=== PATIENT | male | born 1965 | race Two or more races ===

== ENCOUNTER 2020-07-09 12:56 | Outpatient (CLI) | payer OTHER | END 2020-07-09 12:57 | disposition EMS.NT | LOC: EMS 12:56 | DX: R56.9 Unspecified convulsions (principal) ==

== ENCOUNTER 2020-07-09 18:30 | Emergency (ER) | payer OTHER ==
[2020-07-09] MEDS ORDERED: LORazepam 2 MG/ML VIAL IVP STA (18:50)
[2020-07-09] MEDS ORDERED: SODIUM CHLORIDE 0.9% 1,000 ML IV STA (18:50)
[2020-07-09 18:59] LABS: BASOPHILS % (AUTO) 0.7 %; EOSINOPHILS % (AUTO) 0.2 %; HCT - HEMATOCRIT 50.4 % (42.0-52.0); HGB - HEMOGLOBIN 16.1 g/dL (14.0-18.0); LYMPHOCYTES % (AUTO) 21.1 %; MEAN CORPUSCULAR HGB CONC 31.9 g/dL (32.0-36.0); MEAN CORPUSCULAR VOLUME 90.8 fL (80.0-94.0); MEAN PLATELET VOLUME 10.2 fL (7.4-11.4); MONOCYTES % (AUTO) 11.6 %; NEUTROPHILS % (AUTO) 65.7 %; PLT - PLATELET COUNT 249 10^3/uL (130-450); RED BLOOD COUNT 5.55 10^6/uL (4.70-6.10); RED CELL DISTRIBUTION WIDTH 12.6 % (12.0-15.0); WHITE BLOOD COUNT 14.7 x10^3/uL (4.8-10.8)
[2020-07-09 19:01] LABS: ABNORMAL LYMPHS % (MANUAL) 0 %
[2020-07-09 19:25] LABS: BAND NEUTROPHILS % (MANUAL) 2 %; LYMPHOCYTES # (MANUAL) 3.4 10^3/uL (1.5-3.5); LYMPHOCYTES % (MANUAL) 23 %; NEUTROPHILS # (MANUAL) 10.3 10^3/uL (1.5-6.6)
[2020-07-09 19:26] LABS: DIFFERENTIAL COMMENT MANUAL DIFFERENTIAL; PLATELET ESTIMATE, MANUAL NORMAL (130-450,000) (NORMAL); PLATELET MORPHOLOGY NORMAL APPEARANCE (NORMAL); RBC MORPHOLOGY (MULTIPLE) NORMAL APPEARANCE (NORMAL); WBC MORPHOLOGY (MULTIPLE) 1+ TOXIC GRANULATION (NORMAL)
[2020-07-09 19:35] LABS: ALBUMIN 5.2 g/dL (3.2-5.5); CALCIUM 9.6 mg/dL (8.5-10.3); CREATININE 1.1 mg/dL (0.6-1.2); POTASSIUM 3.3 mmol/L (3.5-5.0); TOTAL PROTEIN 7.8 g/dL (6.7-8.2)
--- NOTE | 2020-07-09 19:51 | CT Report ---
PROCEDURE: HEAD WO INDICATIONS: seizure TECHNIQUE: Noncontrast 4.5 mm thick angled axial sections acquired from the foramen magnum to the vertex. For r adiation dose reduction, the following was used: automated exposure control, adjustment of mA and/or kV according to patient size. COMPARISON: None. FINDINGS: Image quality: Excellent. CSF spaces: Basal cisterns are patent. No extra-axial fluid collections. Ventricles are normal in size and shape. Brain: No midline shift. No intracranial masses or hemorrhage. Devries-white matter interface is norm al. Skull and face: Calvarium and visualized facial bones are intact, without suspicious lesions. Sinuses: Visualized sinuses and mastoids are clear. IMPRESSION: No evidence acute stroke, hemorrhage, or mass. Reviewed by: Gregory Buck MD on 07/09/2020 7:50 PM PDT Approved by: Gregory Buck MD on 07/09/2020 7:50 PM PDT Station ID: [id number]
[2020-07-09] MEDS ORDERED: PROMETHAZINE INJ 25 MG in SODIUM CHLORIDE 0.9% 50 ML IV STA (20:32)
[2020-07-09] MEDS ORDERED: KETOROLAC 30 MG/ML VIAL IVP STA (20:32)
[2020-07-09] MEDS ORDERED: PROMETHAZINE 25 MG/1 ML VIAL ONE (20:41)
[2020-07-09 21:33] VITALS: BP 151/91
--- NOTE | 2020-07-09 21:53 | ED Physician Documentation ---
History of Present Illness - Stated complaint Stated Complaint: HUNTER,SEIZURES - Chief complaint Chief Complaint: Neuro - History obtained from History obtained from: Family - Additonal information Additional information: Patient is brought to the emergency department by for chief complaint of seizure. The patient had a seizure this afternoon that lasted around 1 minute, and is concerned because he has not had a seizure previously in 2 years. The states the patient was diagnosed with epilepsy some years ago and takes Lamictal, but rarely has breakthrough seizures. She states he has been under some work stress, but denies any lack of sleep or illness recently. No head injury. No dose changes with regard to his Lamictal. The patient actually had another seizure in triage and is postictal at this time and unable to offer any further information. Review of Systems Unable to obtain: Unresponsive PD PAST MEDICAL HISTORY - Past Medical History Past Medical History: Yes Cardiovascular: Hypertension Neuro: Seizure disorder Endocrine/Autoimmune: Type 2 diabetes - Past Surgical History Past Surgical History: Yes General: Gastric surgery - Present Medications Home Medications: Ambulatory Orders Medication Instructions Recorded Confirmed Lorazepam [Ativan] 2 mg PO Q6HR PRN #6 tablet 07/09/20 lamoTRIgine [Lamictal Odt] 0 mg PO 07/09/20 - Allergies Allergies/Adverse Reactions: Allergies Allergy/AdvReac Type Severity Reaction Status Date / Time hydroxyzine [From Vistaril] Allergy Unknown Verified 07/09/20 18:57 - Social History Does the pt smoke?: No Smoking Status: Never smoker Does the pt drink ETOH?: No Does the pt have substance abuse?: No Results - Vitals Vitals: Oxygen O2 Source Room air - Labs Labs: Laboratory Tests 07/09/20 07/09/20 18:45 18:45 WBC 14.7 H RBC 5.55 Hgb 16.1 Hct 50.4 MCV 90.8 MCH 29.0 MCHC 31.9 L RDW 12.6 Plt Count 249 MPV 10.2 Neut # (Auto) Not Reportable Lymph # (Auto) Not Reportable Wilkes # (Auto) Not Reportable Eos # (Auto) Not Reportable Baso # (Auto) Not Reportable Absolute Nucleated RBC Not Reportable Total Counted 100 Band Neuts % (Manual) 2 Abnorm Lymph % (Manual) 0 Nucleated RBC % Not Reportable Neutrophils # (Manual) 10.3 H Lymphocytes # (Manual) 3.4 Monocytes # (Manual) 1.0 Eosinophils # (Manual) 0.0 Basophils # (Manual) 0.0 Differential Comment MANUAL DIFFERENTIAL WBC Morphology 1+ TOXIC GRANULATION Platelet Estimate NORMAL (130-450,000) Platelet Morphology NORMAL APPEARANCE RBC Morph Micro Appear NORMAL APPEARANCE Sodium 140 Potassium 3.3 L Chloride 102 Carbon Dioxide 16 L Anion Gap 22.0 H BUN 14 Creatinine 1.1 Estimated GFR (MDRD) 69 L Glucose 149 H Calcium 9.6 Total Bilirubin 1.0 AST 33 ALT 32 Alkaline Phosphatase 77 Total Protein 7.8 Albumin 5.2 Globulin 2.6 Albumin/Globulin Ratio 2.0 Lipase 31 - Rads (name of study) CT head Radiology: Final report received, EMP read indepedently, See rad report (neg) PD MEDICAL DECISION MAKING - ED course Complexity details: reviewed results, re-evaluated patient, considered differential, d/w patient, d/w family ED course: The patient was evaluated initially by myself in the triage room where he was actively seizing. Seizure lasted approximately 30 seconds and resolved on its own, after which patient was heavily postictal. He was taken to the exam room and found to have bitten and contused the left side of his tongue and the during the seizure. Patient was worked up with labs, including Lamictal level which is a send out, as well as CT scan of the head. Work-up was unremarkable, other than a very slightly decreased potassium. The patient Not had any furtherHad received Ativan, your activity in the ED. He was beginning to awaken and was able to speak a bit. I discussed with the that at this point in time, we will not change the patient's medications and that this is better done by his neurologist anyway. I do not feel that the neurologist is likely to make any changes with the patient having been stable on his medications for the last 2 y ears, and without knowing the lamotrigine level. At this point in time, I have advised the patient and that the patient could should continue on his normal lamotrigine dosing, and that a breakthrough seizure occasionally is to be expected in patients with a seizure disorder. We have discussed that the patient begins to have Much more frequent seizures, then he will need to be evaluated sooner by his neurologist to determine whether a dose change or medication changes in order. I have advised the to call the neurologist office first thing in the morning to set up a follow-up appointment for soon as possible. Departure - Departure Disposition: 01 Home, Self Care Clinical Impression: Breakthrough seizure Headache Qualifiers: Headache type: unspecified Headache chronicity pattern: acute headache Intractability: not intractable Qualified Code(s): R51.9 - Headache, unspecified Condition: Stable Instructions: ED Seizure Recurrent Prescriptions: Lorazepam [Ativan] 2 mg PO Q6HR PRN #6 tablet PRN Reason: Seizure Comments: Your labs look good, Other than a slightly low potassium. You have been treated with IV fluids, medicine for nausea and headache, and medicine for the seizure. Your CT scan of the head does not show any abnormalities. At this point in time, your lamotrigine level is pending, and will be back in the next couple of days. Please call the neurologist office first thing in the morning to request that they get the records from our hospital so that your doctor can review the lamotrigine level when it does come back. You should also talk to your neurologist office, particularly his nurse if possible, to determine whether a sooner appointment should be scheduled. Discharge Date/Time: 07/09/20 22:11
== END 2020-07-09 22:11 | disposition home or self-care (01) ==
LOC: ED 18:30
DX: G40.909 Epilepsy, unspecified, not intractable, without status epilepticus (principal); R51.9 Headache, unspecified; R11.0 Nausea; E87.6 Hypokalemia; R40.0 Somnolence; R41.0 Disorientation, unspecified; S00.532A Contusion of oral cavity, initial encounter; S00.512A Abrasion of oral cavity, initial encounter; X58.XXXA Exposure to other specified factors, initial encounter; I10 Essential (primary) hypertension; E11.9 Type 2 diabetes mellitus without complications
CPT/HCPCS: 36415; 70450; 80053; 80175; 83690; 85025; 96365; 96375; 99281; 99284; J2060; J7040